=== PATIENT | female | born 1965 | race Caucasian/White ===

== ENCOUNTER 2023-06-26 15:04 | Emergency (ER) | payer BC ==
[2023-06-26] MEDS: diphenhydrAMINE 25 MG Cap PO ONE (16:18)
[2023-06-26] MEDS: methylPREDNISolone Sodium Succinate 125 MG/2 ML SDV IM ONE (16:19)
== END 2023-06-26 16:28 | disposition home or self-care (01) ==
LOC: KA.ED 15:04
DX: L50.0 Allergic urticaria (principal); I10 Essential (primary) hypertension; E66.9 Obesity, unspecified; Z86.16 Personal history of COVID-19; Z79.899 Other long term (current) drug therapy; Z91.048 Other nonmedicinal substance allergy status; Z91.041 Radiographic dye allergy status; Z88.5 Allergy status to narcotic agent; Z68.41 Body mass index [BMI] 40.0-44.9, adult
CPT/HCPCS: 96372; 99282; 99283; A9270-GY; J2930

== ENCOUNTER 2024-01-09 12:53 | Day surgery (SDC) | payer BC ==
[2024-01-09] MEDS ORDERED: Sodium Chloride 0.9% 10 ML Syringe FLUSH PRN (13:00)
[2024-01-09] MEDS: Lactated Ringers 1,000 ML IV SCH (13:20)
[2024-01-09] MEDS ORDERED: Midazolam 1 MG/ML 2 ML SDV ONE (14:00)
[2024-01-09] MEDS ORDERED: Propofol 200 MG/20 ML SDV ONE (14:01)
== END 2024-01-09 16:25 | disposition home or self-care (01) ==
LOC: KA.SDS 12:53
PROVIDERS: ATTEND Family Medicine
DX: Z12.11 Encounter for screening for malignant neoplasm of colon (principal); D12.6 Benign neoplasm of colon, unspecified; K57.30 Diverticulosis of large intestine without perforation or abscess without bleeding; I10 Essential (primary) hypertension; E66.9 Obesity, unspecified; Z68.35 Body mass index [BMI] 35.0-35.9, adult; Z79.899 Other long term (current) drug therapy; Z88.6 Allergy status to analgesic agent; Z91.041 Radiographic dye allergy status
CPT/HCPCS: 00811; J2250; J2704; J3490; J7120